=== PATIENT | female | born 1985 | race American Indian/Alaskan Native ===

== ENCOUNTER 2019-07-26 09:26 | Emergency (ER) | payer SELFPAY ==
--- NOTE | 2019-07-26 10:29 | Emergency Department Report ---
- General Chief Complaint: Sore Throat Stated Complaint: EAR PAIN, NOSE RUNNING Time Seen by Provider: 07/26/19 09:55 Source: patient Mode of arrival: Ambulatory Limitations: No Limitations - History of Present Illness Initial Comments: 34-year-old female with no significant past medical history presents to the ER today complaining of a one-week history of bilateral ear pain and fluid drainage from her ears down into the back of her throat. She reports associated sore throat, frontal headache, sinus pain, rhinorrhea and nasal congestion. She reports "slight" cough. She denies any fever or chills. She denies any wheezing, shortness of breath, neck pain, GI or symptoms. She states that they had been to people at her job who was positive for COVID 19, but they were not in her department. She denies any other obvious ill contacts. MD Complaint: sore throat, rhinorrhea, nasal congestion, sinus pain -: week(s) (1) - Related Data Previous Rx's Medication Instructions Recorded Last Taken Type Amoxicillin [Trimox CAP] 500 mg PO Q8H #30 capsule 07/26/19 Unknown Rx Butalb/Acetaminophen/Caffeine 1 cap PO Q8HR PRN #12 cap 07/26/19 Unknown Rx [Fioricet 50-300-40 mg CAP] Fexofenadine/Pseudoephedrine 1 each PO Q12HR #20 tab.er.12h 07/26/19 Unknown Rx [Hilary-D 12 Hour Tablet] Triamcinolone Acetonide [Nasacort 2 sprays NS DAILY #1 spray 07/26/19 Unknown Rx SPRAY] Allergies Allergy/AdvReac Type Severity Reaction Status Date / Time ibuprofen [From Motrin] Allergy Swelling Verified 07/26/19 09:43 ED Review of Systems ROS: Stated complaint: EAR PAIN, NOSE RUNNING Other details as noted in HPI Constitutional: denies: chills, fever Eyes: denies: eye pain, eye discharge, vision change ENT: ear pain, throat pain, congestion Respiratory: cough. denies: shortness of breath, SOB with exertion, SOB at rest, stridor, wheezing Cardiovascular: denies: chest pain, palpitations Gastrointestinal: denies: abdominal pain, nausea, diarrhea Genitourinary: denies: urgency, dysuria, discharge Musculoskeletal: denies: back pain, joint swelling, arthralgia Skin: denies: rash, lesions Neurological: headache. denies: weakness, paresthesias ED Past Medical Hx - Past Medical History Previous Medical History?: No - Surgical History Past Surgical History?: No - Social History Smoking Status: Never Smoker Substance Use Type: None - Medications Home Medications: Home Medications Medication Instructions Recorded Confirmed Last Taken Type Amoxicillin [Trimox CAP] 500 mg PO Q8H #30 capsule 07/26/19 Unknown Rx Butalb/Acetaminophen/Caffeine 1 cap PO Q8HR PRN #12 cap 07/26/19 Unknown Rx [Fioricet 50-300-40 mg CAP] Fexofenadine/Pseudoephedrine 1 each PO Q12HR #20 tab.er.12h 07/26/19 Unknown Rx [Hilary-D 12 Hour Tablet] Triamcinolone Acetonide [Nasacort 2 sprays NS DAILY #1 spray 07/26/19 Unknown Rx SPRAY] ED Physical Exam - General Limitations: No Limitations General appearance: alert, in no apparent distress - Head Head exam: Present: atraumatic, normocephalic, normal inspection - Eye Eye exam: Present: normal appearance, PERRL, EOMI Pupils: Present: normal accommodation - ENT ENT exam: Present: mucous membranes moist, other (Bilateral frontal sinus tenderness, left maxillary sinus tenderness, nasal turbinates are swollen) - Expanded ENT Exam Expanded TM/Canal exam: Effusion: Right TM, Left TM Throat exam: Positive: tonsillar erythema. Negative: tonsillomegaly, tonsillar exudate, R peritonsillar mass, L peritonsillar mass - Neck Neck exam: Present: normal inspection, full ROM, lymphadenopathy. Absent: meni ngismus - Respiratory Respiratory exam: Present: normal lung sounds bilaterally. Absent: respiratory distress - Cardiovascular Cardiovascular Exam: Present: regular rate, normal rhythm. Absent: systolic murmur, diastolic murmur, rubs, gallop - GI/Abdominal GI/Abdominal exam: Present: soft. Absent: distended, tenderness - Neurological Exam Neurological exam: Present: alert, oriented X3, CN II-XII intact - Psychiatric Psychiatric exam: Present: normal affect, normal mood ED Course Vital Signs 07/26/19 09:40 Temperature 98.3 F Pulse Rate 78 Respiratory 18 Rate Blood Pressure 129/81 O2 Sat by Pulse 100 Oximetry ED Medical Decision Making - Medical Decision Making Patient presents to the ER today complaining of URI symptoms. Patient is alert, she is resting comfortably is in no distress. She has a normal mental status and is neurologically intact. She appears well and there is no significant signs of dehydration. There is no respiratory distress or any signs of systemic toxicity. Her history, and exam, and current condition does not demonstrate any infectious process such as meningitis, severe pneumonia, retropharyngeal abscess, epiglottitis, sepsis or any other serious bacterial infection requiring testing, emergent treatment, consultation or admission at this time. Her vital signs are stable. Patient condition is stable and appropriate for discharge at this time. Suspect her symptoms are related to the sinus infection but patient states that her job recommended that she come into the ER to get checked out, more than likely they want her to get ruled out for COVID 19 since they already had 2 possible cases. Informed patient that at this time we are not doing COVID 19 testing on patient being discharged, but I recommend she follows up with the health department or she can look up [facility] drive-through COVID testing sites or follow-up with local primary care doctor for outpatient testing. In the meantime we will give her a work note until she can get the test done and it is negative at which point she should be able to return to work. Patient expresses understanding of this, and is agreement with discharge instructions and plan. Critical care attestation.: If time is entered above; I have spent that time in minutes in the direct care of this critically ill patient, excluding procedure time. ED Disposition Clinical Impression: Acute rhinosinusitis Disposition: DC-01 TO HOME OR SELFCARE Is pt being admited?: No Does the pt Need Aspirin: No Condition: Stable Instructions: Acute Bacterial Rhinosinusitis (ED) Additional Instructions: I recommend that he start taking the medication prescribed. Unfortunately at this time we are not doing any COVID 19 testing on patient being discharged. I suspect your symptoms are related to sinus infection but I cannot absolutely rule out associated COVID 19. Your job may not allow you to return to work and less you get that test done despite my diagnosis and therefore I recommend that you follow-up with local health department for testing -- [facility] [phone]; [facility] [phone]. In the meantime you should quarantine until you get your test results. I also recommend that she follow-up closely with local primary care doctor. If your symptoms start to get worse return to the ER. Prescriptions: Fexofenadine/Pseudoephedrine [Hilary-D 12 Hour Tablet] 1 each PO Q12HR #20 tab.er.12h Butalb/Acetaminophen/Caffeine [Fioricet 50-300-40 mg CAP] 1 cap PO Q8HR PRN #12 cap PRN Reason: Headache Triamcinolone Acetonide [Nasacort SPRAY] 2 sprays NS DAILY #1 spray Amoxicillin [Trimox CAP] 500 mg PO Q8H #30 capsule Referrals: SHAGGY MARTINEZ MD [Staff Physician] - 3-5 Days Forms: Work/School Release Form(ED) Time of Disposition: 10:37
[2019-07-27 13:16] VITALS: BP 129/81
== END 2019-07-26 11:11 | disposition home or self-care (01) ==
LOC: ED 09:26
DX: J01.90 Acute sinusitis, unspecified (principal); Z79.2 Long term (current) use of antibiotics; Z79.899 Other long term (current) drug therapy; Z88.8 Allergy status to other drugs, medicaments and biological substances
CPT/HCPCS: 99282

== ENCOUNTER 2019-11-14 05:50 | Emergency (ER) | payer SELFPAY ==
[2019-11-14 05:57] VITALS: BP 128/75
[2019-11-14] MEDS ORDERED: ACETAMINOPHEN 500 MG TAB PO ONE (07:19)
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
== END 2019-11-14 08:54 | disposition home or self-care (01) ==
LOC: ED 05:50
DX: S13.4XXA Sprain of ligaments of cervical spine, initial encounter (principal); S00.03XA Contusion of scalp, initial encounter; J45.909 Unspecified asthma, uncomplicated; V89.2XXA Person injured in unspecified motor-vehicle accident, traffic, initial encounter; Y93.89 Activity, other specified; Y92.410 Unspecified street and highway as the place of occurrence of the external cause; Y99.8 Other external cause status
CPT/HCPCS: 70450; 72125

== ENCOUNTER 2020-05-30 09:52 | Emergency (ER) | payer SELFPAY ==
[2020-05-30] MEDS ORDERED: BUTALB/ACETAMINOPHEN/CAFFEINE TAB PO ONE (10:53)
[2020-05-30] MEDS ORDERED: predniSONE 20 MG TAB PO ONE (10:53)
--- NOTE | 2020-05-30 10:53 | Emergency Department Report ---
ED Headache HPI - General Chief Complaint: Headache Stated Complaint: HEADACHE Time Seen by Provider: 05/30/20 10:47 - History of Present Illness Initial Comments: Patient is a 34-year-old female presents emergency room with complaints of a headache that began 2 weeks ago. She states that headache is present all across the front. She states that it feels like a band around her head. She denies any fever, nausea, vomiting, diarrhea, rhinorrhea, cough, congestion, vision changes, numbness, weakness, neck stiffness. She states that she was tested for COVID-19 on 05/23/2020 which was negative. She states that she has been taking Tylenol for her headache without much relief. No past medical history. Allergy to ibuprofen. Last menstrual cycle 2 weeks ago. Allergies/Adverse Reactions: Allergies ibuprofen [From Motrin] Allergy (Verified 07/26/19 09:43) Swelling Home Medications: Ambulatory Orders Amoxicillin [Trimox CAP] 500 mg PO Q8H #30 capsule 07/26/19 Butalb/Acetaminophen/Caffeine [Fioricet 50-300-40 mg CAP] 1 cap PO Q8HR PRN #12 cap 07/26/19 Fexofenadine/Pseudoephedrine [Hilary-D 12 Hour Tablet] 1 each PO Q12HR #20 tab.er.12h 07/26/19 Triamcinolone Acetonide [Nasacort SPRAY] 2 sprays NS DAILY #1 spray 07/26/19 Acetaminophen [Tylenol] 325 mg PO Q6H PRN #12 capsule 11/14/19 Cyclobenzaprine [Flexeril] 10 mg PO QHS PRN #10 tablet 11/14/19 Butalb/Acetaminophen/Caffeine [Fioricet 50-300-40 mg CAP] 1 cap PO Q8HR PRN #12 cap 05/30/20 Metoclopramide [Reglan] 10 mg PO Q8HR PRN #12 tab 05/30/20 diphenhydrAMINE [Benadryl CAP] 25 mg PO Q8HR PRN #12 capsule 05/30/20 ED Review of Systems ROS: Stated complaint: HEADACHE Other details as noted in HPI Comment: All other systems reviewed and negative ED Past Medical Hx - Past Medical History Previous Medical History?: Yes Hx Headaches / Migraines: Yes - Surgical History Past Surgical History?: Yes Additional Surgical History: C-sections X 3 - Social History Smoking Status: Current Every Day Smoker Substance Use Type: None - Medications Home Medications: Home Medications Medication Instructions Recorded Confirmed Last Taken Type Amoxicillin [Trimox CAP] 500 mg PO Q8H #30 capsule 07/26/19 Unknown Rx Butalb/Acetaminophen/Caffeine 1 cap PO Q8HR PRN #12 cap 07/26/19 Unknown Rx [Fioricet 50-300-40 mg CAP] Fexofenadine/Pseudoephedrine 1 each PO Q12HR #20 tab.er.12h 07/26/19 Unknown Rx [Hilary-D 12 Hour Tablet] Triamcinolone Acetonide [Nasacort 2 sprays NS DAILY #1 spray 07/26/19 Unknown Rx SPRAY] Acetaminophen [Tylenol] 325 mg PO Q6H PRN #12 capsule 11/14/19 Unknown Rx Cyclobenzaprine [Flexeril] 10 mg PO QHS PRN #10 tablet 11/14/19 Unknown Rx Butalb/Acetaminophen/Caffeine 1 cap PO Q8HR PRN #12 cap 05/30/20 Unknown Rx [Fioricet 50-300-40 mg CAP] Metoclopramide [Reglan] 10 mg PO Q8HR PRN #12 tab 05/30/20 Unknown Rx diphenhydrAMINE [Benadryl CAP] 25 mg PO Q8HR PRN #12 capsule 05/30/20 Unknown Rx ED Physical Exam - General Limitations: No Limitations General appearance: alert, in no apparent distress - Head Head exam: Present: atraumatic, normocephalic - Eye Eye exam: Present: normal appearance - ENT ENT exam: Present: mucous membranes moist - Respiratory Respiratory exam: Present: normal lung sounds bilaterally. Absent: respiratory distress, wheezes, rales, rhonchi, stridor, chest wall tenderness, accessory muscle use, decreased breath sounds, prolonged expiratory - Cardiovascular Cardiovascular Exam: Present: regular rate, normal rhythm, normal heart sounds. Absent: systolic murmur, diastolic murmur, rubs, gallop - Neurological Exam Neurological exam: Present: alert, oriented X3, CN II-XII intact, normal gait. Absent: motor sensory deficit - Expanded Neurological Exam Expanded Patient oriented to: Present: person, place, time Speech: Present: fluid speech Cranial nerves: EOM's Intact: Normal, Gag Reflex: Normal Cerebellar function: Finger to Nose: Normal, Heel to [place]: Normal, Romberg: Normal Sensory exam: Upper Extremity Light Touch: Normal, Upper Extremity Pin Prick: Normal, Upper Extremity Temperature: Normal, UE 2 Point Discrimination: Normal, Lower Extremity Light Touch: Normal, Lower Extremity Pin Prick: Normal, Lower Extremity Temperature: Normal, LE 2 Point Discrimination: Normal Motor strength exam: RUE: 5, LUE: 5, RLE: 5, LLE: 5 Best Eye Response ([place]): (4) open spontaneously Best Motor Response ([place]): (6) obeys commands Best Verbal Response ([place]): (5) oriented [place] Total: 15 - Psychiatric Psychiatric exam: Present: normal affect, normal mood - Skin Skin exam: Present: warm, dry, intact ED Course Vital Signs 05/30/20 05/30/20 05/30/20 09:59 11:15 11:16 Temperature 98.2 F Pulse Rate 73 Respiratory 16 18 18 Rate Blood Pressure 120/68 Blood Pressure [Left] O2 Sat by Pulse 100 Oximetry 05/30/20 05/30/20 12:32 12:34 Temperature Pulse Rate 68 72 Respiratory 18 18 Rate Blood Pressure Blood Pressure 124/70 118/62 [Left] O2 Sat by Pulse 97 98 Oximetry ED Medical Decision Making - Medical Decision Making Patient is a 34-year-old female presents emergency room with complaints of a headache that began 2 weeks ago. She states that headache is present all across the front. She states that it feels like a band around her head. She denies any fever, nausea, vomiting, diarrhea, rhinorrhea, cough, congestion, vision changes, numbness, weakness, neck stiffness. She states that she was tested for COVID-19 on 05/23/2020 which was negative. She states that she has been taking Tylenol for her headache without much relief. No past medical history. Allergy to ibuprofen. Last menstrual cycle 2 weeks ago. Vitals are normal. Patient has no focal neuro deficits on exam, no meningeal signs, she has had no traumatic injury, no signs of sinusitis. Symptoms appear most consistent with tension headache. Patient given Fioricet and prednisone while in the emergency department her symptoms improved. Patient given prescription for Fioricet, Reglan, Benadryl. Advised patient Please take medication as prescribed. Do not drive or operate heavy machinery while taking Benadryl due to potential for drowsiness. Please take Reglan and Benadryl together. Increase your water in take. Follow-up with primary care doctor. Return to emergency room for any worsening symptoms. Critical care attestation.: If time is entered above; I have spent that time in minutes in the direct care of this critically ill patient, excluding procedure time. ED Disposition Clinical Impression: Headache Qualifiers: Headache type: unspecified Headache chronicity pattern: acute headache Intractability: not intractable Qualified Code(s): R51.9 - Headache, unspecified Disposition: DC-01 TO HOME OR SELFCARE Is pt being admited?: No Does the pt Need Aspirin: No Condition: Stable Instructions: Tension Headache, Adult, [id number] Additional Instructions: Please take medication as prescribed. Do not drive or operate heavy machinery while taking Benadryl due to potential for drowsiness. Please take Reglan and Benadryl together. Increase your water intake. Follow-up with primary care doctor. Return to emergency room for any worsening symptoms. Prescriptions: diphenhydrAMINE [Benadryl CAP] 25 mg PO Q8HR PRN #12 capsule PRN Reason: headache Butalb/Acetaminophen/Caffeine [Fioricet 50-300-40 mg CAP] 1 cap PO Q8HR PRN #12 cap PRN Reason: headache Metoclopramide [Reglan] 10 mg PO Q8HR PRN #12 tab PRN Reason: headache Referrals: SANDY NUNEZ MD [Primary Care Provider] - 2-3 Days SHAGGY MARTINEZ MD [Staff Physician] - 2-3 Days [facility] [Provider Group] - 2-3 Days Forms: Work/School Release Form(ED) Time of Disposition: 11:47 Print Language: KYRGYZ
[2020-05-30 12:35] VITALS: BP 118/62
== END 2020-05-30 12:34 | disposition home or self-care (01) ==
LOC: ED 09:52
DX: R51.9 Headache, unspecified (principal); F17.200 Nicotine dependence, unspecified, uncomplicated; Z79.899 Other long term (current) drug therapy; Z98.890 Other specified postprocedural states; Z88.6 Allergy status to analgesic agent
CPT/HCPCS: 99282; J7512

== ENCOUNTER 2020-11-16 21:20 | Emergency (ER) | payer OTHER ==
--- NOTE | 2020-11-17 01:45 | XRay Report ---
CHEST 2 VIEWS INDICATION: cough and fever. COMPARISON: None. FINDINGS: Support devices: None. Heart: Within normal limits. Lungs/Pleura: Bilateral pneumonia mid/lower zones right greater than left. No significant pleural eff usion. IMPRESSION: Bilateral pneumonia right greater than left. Signer Name: Dusty Wesley MD Signed: 11/17/2020 1:41 AM Workstation Name: [id number]
[2020-11-17 03:27] LABS: Basophils % (Auto) 0.1 % (0.0-1.8); Hematocrit 38.2 % (30.3-42.9); Hemoglobin 12.8 gm/dl (10.1-14.3); Lymphocytes # (Auto) 1.7 K/mm3 (1.2-5.4); Lymphocytes % (Auto) 33.6 % (13.4-35.0); Mean Corpuscular HGB Conc 34 % (30-34); Mean Corpuscular Volume 84 fl (79-97); Monocytes # (Auto) 0.5 K/mm3 (0.0-0.8); Monocytes % (Auto) 10.3 % (0.0-7.3); Platelet Count 203 K/mm3 (140-440); Red Blood Count 4.53 M/mm3 (3.65-5.03); Red Cell Distribution Width 15.1 % (13.2-15.2)
[2020-11-17] MEDS: SODIUM CHLORIDE 0.9% 1000 ML 1,000 ML IV ONE (03:28)
[2020-11-17] MEDS: AZITHROMYCIN 250 MG TAB PO ONE (03:28)
[2020-11-17] MEDS: cefTRIAXone/NS 1 GM/50 ML 1 GM/50 ML BAG IV ONE (03:28)
[2020-11-17] MEDS: ACETAMINOPHEN 500 MG TAB PO ONE (03:28)
[2020-11-17] MEDS: IPRATROPIUM 0.02% NEBU 2.5 ML IH ONE (03:29)
[2020-11-17] MEDS: dexAMETHasone 20 MG/5 ML VIAL IV ONE (03:29)
[2020-11-17] MEDS: ALBUTEROL 2.5 MG/3 ML NEBU IH ONE (03:29)
[2020-11-17 03:48] LABS: Alanine Aminotransferase 129 units/L (7-56); BUN/Creatinine Ratio 11; Blood Urea Nitrogen 10 mg/dL (7-17); Calcium 8.7 mg/dL (8.4-10.2); Hemolysis Index 4
[2020-11-17] MEDS: FAMOTIDINE 20 MG/2 ML INJ IV ONE (04:19)
[2020-11-17] MEDS: ONDANSETRON 4 MG/2 ML INJ IV ONE (04:19)
--- NOTE | 2020-11-17 06:31 | Emergency Department Report ---
- General Chief Complaint: Fever Stated Complaint: FEVER/COUGH/POSITIVE COVID Source: patient Mode of arrival: Ambulatory Limitations: No Limitations - History of Present Illness Initial Comments: Patient is a 35-year-old -[place] female with past medical history of migraine headaches who presents to the ED with complaint of acute onset persistent nasal and sinus congestion, frontal sinus pressure, diffuse body aches and pains, shortness of breath, persistent dry cough and wheezing and nausea for the last 1 week. Patient states that she has been taking [id number] medications with no relief. Patient states that she tested positive for COVID-19 viral infection about 1 week ago and has been self quarantine at home but states that in the last 24 hours, her symptoms got worse such that she became more short of breath especially with exertion. Patient states that no one else at home has had similar symptoms. Patient denies dizziness, syncope, vomiting, diarrhea, dysuria, urinary frequency and urgency, chest pain, abdominal pain, sore throat, seizures or vaginal bleeding. MD Complaint: fever, cough, sore throat, rhinorrhea, nasal congestion, sinus pain, other (Shortness of breath) -: Sudden, week(s) (1) Severity: severe Severity scale (0 -10): 7 Quality: sharp, aching Consistency: constant Worsens With: nothing Context: sick contacts, other (Recently diagnosed with COVID-19 viral infection 5 days ago) Associated Symptoms: denies other symptoms, fever, chills, myalgias, headache, rhinorrhea, nasal congestion, sore throat, cough, shortness of breath. denies: diaphoresis, stiff neck, chest pain, abdominal pain, nausea, vomiting, diarrhea, dysuria, rash, confusion, right sweats, epistaxis, hoarseness, ear pain, other Treatments Prior to Arrival: "cold medicine" - Related Data Previous Rx's Medication Instructions Recorded Last Taken Type Amoxicillin [Trimox CAP] 500 mg PO Q8H #30 capsule 07/26/19 Unknown Rx Butalb/Acetaminophen/Caffeine 1 cap PO Q8HR PRN #12 cap 07/26/19 Unknown Rx [Fioricet 50-300-40 mg CAP] Fexofenadine/Pseudoephedrine 1 each PO Q12HR #20 tab.er.12h 07/26/19 Unknown Rx [Hilary-D 12 Hour Tablet] Triamcinolone Acetonide [Nasacort 2 sprays NS DAILY #1 spray 07/26/19 Unknown Rx SPRAY] Acetaminophen [Tylenol] 325 mg PO Q6H PRN #12 capsule 11/14/19 Unknown Rx Cyclobenzaprine [Flexeril] 10 mg PO QHS PRN #10 tablet 11/14/19 Unknown Rx Butalb/Acetaminophen/Caffeine 1 cap PO Q8HR PRN #12 cap 05/30/20 Unknown Rx [Fioricet 50-300-40 mg CAP] Metoclopramide [Reglan] 10 mg PO Q8HR PRN #12 tab 05/30/20 Unknown Rx diphenhydrAMINE [Benadryl CAP] 25 mg PO Q8HR PRN #12 capsule 05/30/20 Unknown Rx Acetaminophen [Tylenol] 500 mg PO Q6HR #30 tablet 11/17/20 Unknown Rx Albuterol Sulfate [Proventil Hfa] 1 - 2 puff IH Q6H PRN #1 hfa.aer.ad 11/17/20 Unknown Rx Ascorbic Acid [Vitamin C] 1,000 mg PO Q12H #30 tablet 11/17/20 Unknown Rx Azithromycin [Zithromax Z-MELANIE] 250 mg PO DAILY #6 tablet 11/17/20 Unknown Rx Cetirizine HCl [Zyrtec 10mg tab] 10 mg PO DAILY #30 tablet 11/17/20 Unknown Rx Ondansetron [Zofran Odt] 4 mg PO Q8HR PRN #15 tab.rapdis 11/17/20 Unknown Rx Allergies Allergy/AdvReac Type Severity Reaction Status Date / Time ibuprofen [From Motrin] Allergy Swelling Verified 07/26/19 09:43 ED Review of Systems ROS: Stated complaint: FEVER/COUGH/POSITIVE COVID Other details as noted in HPI Constitutional: chills, fever, malaise Eyes: denies: eye pain, eye discharge, vision change ENT: congestion, other (Frontal sinus pressure and congestion). denies: ear pain, throat pain Respiratory: cough, shortness of breath, wheezing Cardiovascular: denies: chest pain, palpitations Endocrine: no symptoms reported Gastrointestinal: denies: abdominal pain, nausea, vomiting, diarrhea Genitourinary: denies: urgency, dysuria, discharge Musculoskeletal: arthralgia, myalgia. denies: back pain, joint swelling Skin: denies: rash, lesions Neurological: headache. denies: weakness, paresthesias Psychiatric: denies: anxiety, depression Hematological/Lymphatic: denies: easy bleeding, easy bruising ED Past Medical Hx - Past Medical History Previous Medical History?: Yes Hx Headaches / Migraines: Yes - Surgical History Past Surgical History?: Yes Additional Surgical History: C-sections X 3 - Social History Smoking Status: Never Smoker Substance Use Type: None - Medications Home Medications: Home Medications Medication Instructions Recorded Confirmed Last Taken Type Amoxicillin [Trimox CAP] 500 mg PO Q8H #30 capsule 07/26/19 Unknown Rx Butalb/Acetaminophen/Caffeine 1 cap PO Q8HR PRN #12 cap 07/26/19 Unknown Rx [Fioricet 50-300-40 mg CAP] Fexofenadine/Pseudoephedrine 1 each PO Q12HR #20 tab.er.12h 07/26/19 Unknown Rx [Hilary-D 12 Hour Tablet] Triamcinolone Acetonide [Nasacort 2 sprays NS DAILY #1 spray 07/26/19 Unknown Rx SPRAY] Acetaminophen [Tylenol] 325 mg PO Q6H PRN #12 capsule 11/14/19 Unknown Rx Cyclobenzaprine [Flexeril] 10 mg PO QHS PRN #10 tablet 11/14/19 Unknown Rx Butalb/Acetaminophen/Caffeine 1 cap PO Q8HR PRN #12 cap 05/30/20 Unknown Rx [Fioricet 50-300-40 mg CAP] Metoclopramide [Reglan] 10 mg PO Q8HR PRN #12 tab 05/30/20 Unknown Rx diphenhydrAMINE [Benadryl CAP] 25 mg PO Q8HR PRN #12 capsule 05/30/20 Unknown Rx Acetaminophen [Tylenol] 500 mg PO Q6HR #30 tablet 11/17/20 Unknown Rx Albuterol Sulfate [Proventil Hfa] 1 - 2 puff IH Q6H PRN #1 hfa.aer.ad 11/17/20 Unknown Rx Ascorbic Acid [Vitamin C] 1,000 mg PO Q12H #30 tablet 11/17/20 Unknown Rx Azithromycin [Zithromax Z-MELANIE] 250 mg PO DAILY #6 tablet 11/17/20 Unknown Rx Cetirizine HCl [Zyrtec 10mg tab] 10 mg PO DAILY #30 tablet 11/17/20 Unknown Rx Ondansetron [Zofran Odt] 4 mg PO Q8HR PRN #15 tab.rapdis 11/17/20 Unknown Rx ED Physical Exam - General Limitations: No Limitations General appearance: alert, in no apparent distress - Head Head exam: Present: atraumatic, normocephalic, normal inspection - Eye Eye exam: Present: normal appearance, PERRL, EOMI Pupils: Present: normal accommodation - ENT ENT exam: Present: normal orophraynx, mucous membranes moist, TM's normal bilaterally, normal external ear exam, other (Grossly congested nasal passages) - Neck Neck exam: Present: normal inspection, full ROM - Respiratory Respiratory exam: Present: wheezes (Diffuse coarse wheezes throughout). Absent: respiratory distress, rales, stridor, chest wall tenderness, accessory muscle use, decreased breath sounds, prolonged expiratory - Cardiovascular Cardiovascular Exam: Present: normal rhythm, tachycardia, normal heart sounds. Absent: systolic murmur, diastolic murmur, rubs, gallop - GI/Abdominal GI/Abdominal exam: Present: soft, normal bowel sounds. Absent: tenderness, guarding, rebound, hyperactive bowel sounds, hypoactive bowel sounds, organomegaly, mass - Extremities Exam Extremities exam: Present: normal inspection, full ROM, normal capillary refill - Back Exam Back exam: Present: normal inspection, full ROM. Absent: tenderness, CVA tenderness (R), CVA tenderness (L), muscle spasm, vertebral tenderness - Neurological Exam Neurological exam: Present: alert, oriented X3, CN II-XII intact, normal gait, reflexes normal - Psychiatric Psychiatric exam: Present: normal affect, normal mood - Skin Skin exam: Present: warm, dry, intact, normal color. Absent: rash ED Course Vital Signs 11/16/20 23:37 Temperature 99.4 F Pulse Rate 101 H Respiratory 18 Rate Blood Pressure 98/65 O2 Sat by Pulse 95 Oximetry ED Medical Decision Making - Lab Data Result diagrams: 11/17/20 03:12 11/17/20 03:12 - Radiology Data Radiology results: report reviewed, image reviewed [facility] [address] [place] [address] XRay Report Signed Patient: RADHA CASTELLON MR#: [id number] : 1985 Acct:[id number] Age/Sex: 35 / F ADM Date: 11/16/20 Loc: ED Attending Dr: Ordering Physician: MIGDALIA HUBBARD MD Date of Service: 11/16/20 Procedure(s): XR chest routine 2V Accession Number(s): [id number] cc: MIGDALIA HUBBARD MD Fluoro Time In Minutes: CHEST 2 VIEWS INDICATION: cough and fever. COMPARISON: None. FINDINGS: Support devices: None. Heart: Within normal limits. Lungs/Pleura: Bilateral pneumonia mid/lower zones right greater than left. No significant pleural effusion. IMPRESSION: Bilateral pneumonia right greater than left. Signer Name: Dusty Wesley MD Signed: 11/17/2020 1:41 AM Workstation Name: [id number] Transcribed By: ES Dictated By: Dusty Wesley MD Electronically Authenticated By: Dusty Wesley MD Signed Date/Time: 11/17/20140 DD/ 9 TD/TT: - Medical Decision Making This is a 35-year-old -[place] female with past medical history of migraine headaches who presents to the ED with complaint of acute onset persistent nasal and sinus congestion, frontal sinus pressure, diffuse body aches and pains, shortness of breath, persistent dry cough and wheezing and nausea for the last 1 week. Patient states that she has been taking rvhq-boy-goykwdr medications with no relief. Patient states that she tested positive for COVID-19 viral infection about 1 week ago and has been self q uarantine at home but states that in the last 24 hours, her symptoms got worse such that she became more short of breath especially with exertion. Patient states that no one else at home has had similar symptoms. In the ED, patient is alert and oriented x3 and is not in any distress. Patient is however tachycardic but afebrile in triage with oxygen saturation of 95% in room air. Patient received nebulizer treatment in the ED as well as steroid injection. Chest x-ray showed Bilateral pneumonia right greater than left. Patient also received normal saline 1 L IV bolus x1 as well as Rocephin 1 g IV x1 and azithromycin 500 mg p.o. x1. On reevaluation, patient felt better, wheezing improved significantly and patient's oxygen saturation ranged from 95 to 97% room air. Patient was therefore discharged home on medications and advised to continue self quarantine due to her recent COVID-19 positive diagnosis. Patient was also advised to return to the emergency department immediately if symptoms get worse. - Differential Diagnosis Pneumonia; Covid-19; bronchitis; URI Critical care attestation.: If time is entered above; I have spent that time in minutes in the direct care of this critically ill patient, excluding procedure time. ED Disposition Clinical Impression: Dyspnea due to COVID-19, Pneumonia due to 2019 novel coronavirus, Upper respiratory tract infection due to COVID-19 virus Disposition: HOME / SELF CARE / HOMELESS Is pt being admited?: No Does the pt Need Aspirin: No Condition: Stable Instructions: Bacterial Pneumonia (ED), Shortness of Breath, Adult, [id number], Upper Respiratory Infection, Adult, [id number], COVID-19 Frequently Asked Questions, Cough, Adult, Xxla-[id number], COVID-19: How to Protect Yourself and Others - CDC, Community-Acquired Pneumonia, Adult, [id number] Additional Instructions: All lab test results were reviewed and are all nonactionable. Chest x-ray shows bilateral pneumonia consistent with COVID-19 viral infection. Therefore take medications with food, drink plenty of fluids and continue to self quarantine for 10 days while taking medications. Follow-up with your primary care physician in 7 to 10 days for reevaluation. Return to the ED immediately if symptoms get worse. Prescriptions: Acetaminophen [Tylenol] 500 mg PO Q6HR #30 tablet Albuterol Sulfate [Proventil Hfa] 1 - 2 puff IH Q6H PRN #1 hfa.aer.ad PRN Reason: Shortness Of Breath Ascorbic Acid [Vitamin C] 1,000 mg PO Q12H #30 tablet Azithromycin [Zithromax Z-MELANIE] 250 mg PO DAILY #6 tablet Ondansetron [Zofran Odt] 4 mg PO Q8HR PRN #15 tab.rapdis PRN Reason: Nausea Cetirizine HCl [Zyrtec 10mg tab] 10 mg PO DAILY #30 tablet Referrals: [facility] [Provider Group] - 7-10 days Forms: Work/School Release Form(ED) Time of Disposition: 06:34 Print Language: KYRGYZ
[2020-11-17 07:48] VITALS: BP 102/70
== END 2020-11-17 07:49 | disposition home or self-care (01) ==
LOC: ED 21:20
DX: U07.1 COVID-19 (principal); J12.82 Pneumonia due to coronavirus disease 2019; J06.9 Acute upper respiratory infection, unspecified; R06.00 Dyspnea, unspecified; G43.909 Migraine, unspecified, not intractable, without status migrainosus; Z88.6 Allergy status to analgesic agent; Z79.899 Other long term (current) drug therapy; Z98.890 Other specified postprocedural states
CPT/HCPCS: 36415; 71046; 80053; 84703; 85025; 94640; 96365; 96375; 99284; J0696; J1100; J2405; J7030